=== PATIENT | female | born 1995 | race Caucasian/White ===

== ENCOUNTER 2022-04-09 14:55 | Day surgery (SDC) | payer OTHER, SELFPAY ==
[2022-04-09] VITALS (17 sets, daily range): BP systolic 81–119; BP diastolic 52–97; PULSE 59–91; RESP 14–20; TEMP 36.3–37.3; O2SAT 97–100; BMI 24.3
--- NOTE | 2022-04-09 12:15 | CRLHL7_ITS ---
For Patients: As a result of the Cures Act, medical imaging exams and procedure reports are released immediately into your electronic medical record. You may view this report before your referring provider. If you have questions, please contact your health care provider. INDICATION: Dating and viability. LMP 01/26/2022. COMPARISON: None. TECHNIQUE: Real-time blue-scale imaging of the pelvis was performed. FINDINGS: Sonographic imaging demonstrates a single living intrauterine gestation. The embryo has a regular cardiac rate measuring 98 beats per minute. The embryo`s crown-rump length measurement of 0.3 cm corresponds to a gestational age of 5 weeks 6 days with a sonographic due date of 12/04/2022. There is a normal-appearing yolk sac. The placenta has not yet developed. No evidence of a perigestational hemorrhage. The cervix appears closed. The left ovary is normal in appearance measuring 3.8 x 1.5 x 2.2 cm. There is a large complex solid and cystic structure in the right adnexa extending posterior to the uterus measuring approximately 10.2 x 4.3 x 9.1 cm. Within this structure there is a 3.0 x 2.6 x 2.5 cm thick-walled complex cyst with peripheral vascularity which may represent a corpus luteum. Moderate amount of free fluid in the right adnexa. IMPRESSION: 1. Single living intrauterine gestation with crown rump length 0.3 cm which corresponds to a gestational age of 5 weeks 6 days with a sonographic due date of 12/04/2022. This is discordant with the clinical gestational age of 10 weeks 3 days. 2. Large complex solid and cystic structure in the right adnexa extending posterior to the uterus. This may represent an abnormal enlarged ovary or ovarian mass. There appears to be a corpus luteum within this structure. Ectopic consider less likely given presence of an intrauterine gestation. Consider further evaluation with MRI. 3. Moderate amount of free fluid in the right adnexa greater than expected for physiologic. Dictated by Florencia Brunson MD @ 04/09/2022 2:30:36 PM (Electronically Signed)
[2022-04-09] MEDS: LACTATED RINGERS 1000 ML 1,000 ML 125 ML IV ×2 (15:15→23:02)
[2022-04-09 16:21] LABS: SARS PCR* Negative SARS-CoV-2 (Negative)
[2022-04-09] MEDS: BUPIVACAINE 0.25% 30 ML 8 ML INJECTION (16:22)
[2022-04-09 16:58] LABS: Eosinophils Absolute Auto 0.01 K/uL (0.00-0.50); Eosinophils Percent Auto 0.1 % (0.0-7.0); Hematocrit 35.1 % (33.0-51.0); Hemoglobin* 11.6 gm/dL (12.0-16.0); Immature Granulocytes Abs Auto 0.01 K/uL (0.00-0.30); Immature Granulocytes Pct Auto 0.1 %; Lymphocytes Absolute Auto 2.09 K/uL (0.90-2.90); Lymphocytes Percent Auto 29.8 % (20-44); Mean Corpuscular HGB Conc 33 gm/dL (32-36); Mean Corpuscular Hemoglobin 28 pg (26-34); Mean Corpuscular Volume 83 fL (80-100); Monocytes Percent Auto 6.4 % (0.0-11.0); Neutrophils Absolute Auto 4.46 K/uL (1.7-7.0); Neutrophils Percent Auto 63.6 % (42.0-72.0); Platelet Count* 258 K/uL (140-440); RDW Coefficient of Variation % 12.4 % (11.5-15.5); Red Blood Count 4.22 m/uL (4.00-5.20); White Blood Count* 7.02 K/uL (4.50-11.00)
[2022-04-09] MEDS: LACTATED RINGERS 1000 ML 1,000 ML 100 ML IV (17:00)
[2022-04-09 17:16] LABS: INR 1.06 (0.91-1.10); Prothrombin Time 14.4 Seconds
[2022-04-09 17:17] LABS: Fibrinogen* 312 mg/dL (200-450)
--- NOTE | 2022-04-09 17:51 | PM.GSPRC ---
Operative Note Date of procedure: 04/09/22 Type of Procedure: Diagnostic laparoscopy Procedure Description: Patient was asleep and laparoscopic ports in place when I entered the operating room. An additional 5 mm port was placed in the left upper quadrant. There was a moderate amount of dark blood within the pelvis. This was gently irrigated and suctioned. No active bleeding was seen in the pelvis. The uterus , bilateral fallopian tubes and ovaries appeared normal. The left pericolic gutter was examined. There was some dark sanguinous fluid that was suctioned, no active bleeding was seen. Left colon appeared normal. The spleen was visualized and appeared intact with no active bleeding in the left upper quadrant. The liver was examined, there was a moderate amount of dark sanguinous fluid behind the liver and within the gallbladder fossa. This was irrigated and suctioned, with again no active bleeding identified. The right pericolic gutter was visualized. No active bleeding, colon appeared normal and appendix was normal. The omentum was gently lifted with no bleeding present underneath the omentum. Stomach appeared normal. The entirety of the small bowel was run and the mesentery visualized, with no injury or bleeding seen. The entry sites of the ports were examined, no anterior abdominal wall bleeding or hematoma seen. The abdominal insufflation was partially deflated and we observed the intra-abdominal contents under this reduced pressure for an extended period of time (greater than 20 minutes). During this time period and throughout the entire operation there was no welling of blood or active bleeding identified. At this time Dr. Gisela Edwards took over to close the ports and complete the case. Please see her note for full details. Findings: Intra-abdominal hemoperitoneum, no active bleeding seen and no source identified. Anesthesia: GETA Surgeon: Jenn Mcclelland MD Estimated blood loss (mL): 0 Condition: stable Disposition: PACU
--- NOTE | 2022-04-09 18:03 | PM.GSCN ---
History of Present Illness Consult details Date Seen: 04/09/22 Consult date: 04/09/22 Narrative: History is from chart review with patient currently in the operating room in unable to provide. Patient is an otherwise healthy 26-year-old female who presented for her 1st OB visit. She recently discovered she was , currently estimated to be 6 weeks. She does have a 3-year-old daughter. Current symptoms described during include nausea and sharp right-sided abdominal pain. She does cramp on this side with periods, but also has started to feel pelvic pain and pressure that started this morning. On chart review she scribed the pain is severe, focus within the right lower quadrant and worse with movement. 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 Review of Systems Status of ROS: Reports: unobtainable due to medical condition [facility] Medical History Migraine aura without headache Surgical History [place] teeth extracted Family History Father Alcohol dependence High blood pressure High cholesterol Skin cancer Pancreatitis Paternal Grandmother Alcohol dependence High blood pressure High cholesterol Stroke Paternal Grandfather Diabetes High blood pressure High cholesterol Maternal Grandfather Prostate cancer Other Myocardial infarction Meds Home Medications and Allergies Home Medications Medication Instructions Recorded Confirmed Type No Known Home Medications 04/09/22 04/09/22 History Allergies Allergy/AdvReac Type Severity Reaction Status Date / Time No Known Drug Allergies Allergy Verified 04/09/22 15:53 Exam Narrative: Exam Narrative: General: Patient intubated on the operating room. Respiratory: Patient intubated and being ventilated, equal breath rise. Adequate oxygenation CV: Regular rhythm rate, well perfused. Hemodynamically stable. Abdomen: Deferred at this time. Const: Vital Signs, click to edit/add: Vital Signs - 24 hr 04/09/22 15:19 Pulse Rate 81 Respiratory Rate 20 Blood Pressure 118/86 Pulse Oximetry 98 Oxygen Delivery Me thod Room Air Results Labs Labs: Abnormal lab results 04/09/22 04/09/22 Range/Units 16:54 16:54 Hgb 11.6 L (12.0-16.0) gm/dL Crossmatch ([facility]G) See Detail All other labs normal. Imaging US - pelvic: report reviewed and image reviewed Assessment and Plan Assessment and plan (1) Hemoperitoneum (nontraumatic): Status: Acute Plan Patient is an otherwise healthy 26-year-old female who presented for her 1st OB visit with complaints of right lower quadrant abdominal pain. Workup demonstrated via transvaginal ultrasound a complex mass around the right adnexa. Starting hemoglobin normal at 14.0, platelet 295. Evidence in the operating room of hemoperitoneum, nontraumatic, of unknown origin. A diagnostic laparoscopy was performed and negative for any source, with no active bleeding seen. Intraoperative hemoglobin did demonstrate a drop of 11.6. However patient did receive 1300 mL for fluids intraop, so this could be a component of dilution. A type and cross was performed, but no blood given. Discussed with primary care provider, Dr. Gisela Edwards, who was present in the operating room. Will speak with patient about further imaging with a CT scan. Would also plan for observation overnight and trending hemoglobins. Will continue to follow closely. Please call with any acute clinical changes, questions or concerns.
--- NOTE | 2022-04-09 18:10 | PM.PROC ---
Procedure Note Time Seen by Provider: 18:11 Date Seen: 04/09/22 Date of procedure: 04/09/22 Will [facility] bill your pro fee for this procedure?: Yes Procedure: Preoperative diagnosis: 26-year-old 2 para 1 at side weeks 6 days gestation by vaginal ultrasound on 04/09/2022. Suspected heterotopic with moderate to large amount of blood and blood clot in the pelvis near the right adnexa (ruptured ectopic ) Postoperative diagnosis: Hemoperitoneum, source not identified. Procedure: Diagnostic laparoscopy Anesthesia: General endotracheal, local Surgeon: Kamila Kearns MD assistant housekeeping manager: Debi Evans MD Cytology Technologist surgeon: Jenn Mcclelland MD IV Fluid: 1300 mL Estimated blood loss: Intra-abdominal blood plus estimated blood loss from the procedure: 400 mL Urine output: 25 mL clear urine at the end of the procedure. Specimen: None Findings: Exam under anesthesia approximately 6-7 week size uterus. No adnexal mass or fullness was palpable. On laparoscopy: On entrance into the abdomen there was 300-400 mL of very dark, maroon colored, old blood and blood clot. There was approximately 200 mL of blood and clot in the posterior cul-de-sac/pelvis. The ovaries tubes and uterus appeared normal. Normal appendix. Normal liver and gallbladder. Because there was no gynecologic/obstetric source of bleeding doctor: Was consulted. Procedure: Patient was taken to the operating room where general anesthetic was found be adequate. A Shannon catheter was placed. She was placed in the dorsal supine position and prepped and draped in a normal sterile manner. All incisions were injected with 0.5% Marcaine without epinephrine prior to incising the skin. A vertical, 5 mm infra umbilical incision was made. A 5 mm trocar was placed under direct visualization. The abdomen was insufflated with CO2 gas to a pressure of 15mmHG. Bilateral lower quadrant ports were placed. Right lower quadrant: 5 mm and left lower quadrant: 11 mm. All trocars were placed under direct visualization with laparoscopy. The pelvis was irrigated and the blood and clot in the pelvis suctioned. The tubes and ovaries were closely inspected and there was no evidence of ruptured ovarian cyst or ruptured fallopian tube. No identified gynecologic source of bleeding. The liver, gallbladder and appendix were inspected and all normal. Doctor cMclelland was consulted. The CO2 gas was decreased to a pressure of 8mmHg and the abdomen inspected when Dr. Mcclelland arrived. We waited approximately 25 minutes and when the laparoscope was reintroduced into the abdomen there was no evidence of increased accumulation of blood and no welling of blood in the pelvis, pericolic gutters or near the liver or spleen. Please see Dr. Mcclelland's procedure note for details of her portion of the procedure. The fascia of the left lower quadrant, 11 mm port was reapproximated using the Anand-Thomasen fascial closure device. All trocars were removed under direct visualization. The CO2 gas was allowed to escape the left upper quadrant port prior to its removal. All skin incisions were reapproximated using 4-0 Monocryl in running subcuticular manner. Exofin skin adhesive was then applied. Surgeon: Kamila Kearns MD
--- NOTE | 2022-04-09 18:21 | W.ANESCHARGE ---
Anesthesia Charges Start Date/Time Anesthesia Start Date: 04/09/22 Anesthesia Start Time: 15:53 Stop Date/Time Anesthesia Stop Date: 04/09/22 Anesthesia Stop Time: 18:19 Summary Emergency: Yes
[2022-04-09 23:01] LABS: Hemoglobin* 12.8 gm/dL (12.0-16.0)
[2022-04-10] VITALS: BP 93/63; PULSE 89; RESP 16; TEMP 36.8; O2SAT 100
[2022-04-10 01:00] VITALS: BP 98/68; PULSE 86; RESP 16; TEMP 36.8; O2SAT 97
[2022-04-10 03:00] VITALS: BP 116/74; PULSE 71; RESP 16; TEMP 37.3; O2SAT 98
--- NOTE | 2022-04-10 05:05 | PC.NURSE ---
[id number]: Patient pleasant and cooperative. Rates pain 3-4/10. Declines pain medications. Active ice to op site. 4 lap sites glued and CHAPARRO. SBA. NPO. Some BP soft but denies dizziness/lightheadedness. HR 70-80's. Voiding. BS hypoactive.
[2022-04-10 05:53] LABS: Hemoglobin* 12.1 gm/dL (12.0-16.0)
[2022-04-10 07:30] VITALS: PULSE 88
[2022-04-10 07:47] VITALS: BP 113/83; PULSE 95; RESP 18; TEMP 37.6; O2SAT 96
--- NOTE | 2022-04-10 11:27 | P.GYNPN_ITS ---
[employer] - A/P Assessment and plan (1) Hemoperitoneum (nontraumatic): Status: Acute Plan - F/u with OB provided in 1 week for repeat hgb and TVUS to confirm viability Postoperative Procedures: Procedures Operation Date: 04/09/22 16:15 <No data on this case meets the specified criteria> Operation Date: 04/09/22 16:15 Actual Procedure Side Surgeon p Diagnostic Laparoscopy Not Applicable Kamila Kearns MD Time Spent With Patient Time: Total time spent is greater than 50% in coordination of care (as documented) at patient's floor/unit and/or counseling patient: Time with patient: less than 15 minutes [employer]- PN:Subj Post-Op Subjective Time Seen by Provider: 11:00 Date Seen: 04/10/22 Post Operative Details: Post-operative day number 1: status post diagnostic laparoscopy for hemoperitoneum, unidentified source. She's doing well overall with no postop related complaints. She's ambulated, urinated without hdz, pass flatus, and pain is well controlled. She is upset that she has to wear a mask in the hospital as she felt she was discriminated against. She also would like a home . I informed her that none of our OB providers ( or [facility]) do home births. I do recommend doing at least a follow up and full initial OB visit to make sure everything is ok from this surgery prior to pursuing home care. [employer]-PN: Obj Exam Physical Exam: Vital signs: Temp Pulse Resp BP Pulse Ox O2 Del Method 99.6 F 95 18 113/83 96 04/10/22 07:47 04/10/22 07:47 04/10/22 07:47 04/10/22 07:47 04/10/22 07:47 04/10/22 07:47 Narrative: Exam Narrative: General:? Alert and oriented, no acute distress Respiratory: unlabored breathing. Abdomen:? Appropriately tender over incision sites.? Incisions are clean/dry/intact.? Abdomen is soft and nondistended [employer] - PN: Obj Data Labs Labs: Laboratory Results - last 24 hr 04/09/22 04/09/22 04/09/22 15:05 16:54 16:54 WBC 7.02 RBC 4.22 Hgb 11.6 L Hct 35.1 MCV 83 MCH 28 MCHC 33 RDW Coeff of Armand 12.4 Plt Count 258 Neut % (Auto) 63.6 Lymph % (Auto) 29.8 Parmer % (Auto) 6.4 Eos % (Auto) 0.1 Baso % (Auto) 0.0 Neut # (Auto) 4.46 Lymph # (Auto) 2.09 Parmer # (Auto) 0.40 Eos # (Auto) 0.01 Baso # (Auto) 0.00 Abs Immat Gran (auto) 0.01 Imm/Tot Granulo (auto) 0.1 INR Fibrinogen SARS-CoV-2 (PCR) Negative SARS-CoV-2 Blood Type B Positive Antibody Screen NEGATIVE Crossmatch ([facility]) See Detail 04/09/22 04/09/22 04/10/22 16:54 22:50 05:20 WBC RBC Hgb 12.8 12.1 Hct MCV MCH MCHC RDW Coeff of Armand Plt Count Neut % (Auto) Lymph % (Auto) Parmer % (Auto) Eos % (Auto) Baso % (Auto) Neut # (Auto) Lymph # (Auto) Parmer # (Auto) Eos # (Auto) Baso # (Auto) Abs Immat Gran (auto) Imm/Tot Granulo (auto) INR 1.06 Fibrinogen 312 SARS-CoV-2 (PCR) Blood Type Antibody Screen Crossmatch ([facility])
--- NOTE | 2022-04-10 11:29 | PM.GSPN ---
Subjective Subjective Date Seen: 04/10/22 Interval history: Patient is doing well this morning. Her main complaint is pain in the left lower quadrant at 1 of the port sites. She has been refusing any pain medicine and been placing ice to the area. She is hungry, denies any nausea or vomiting. She does not want to eat to the breakfast your the hospital. She did talk with me about how she feels like her bleeding is from exposure to people who have had the COVID vaccine. She also discussed her desire to take turmeric for pain control. Exam Narrative: Exam Narrative: General: Alert and oriented, no acute distress Respiratory: Equal breath rise bilaterally, maintained on room air CV: Regular rhythm rate Abdomen: Appropriately tender over incision sites. Incisions are clean/dry/intact. Abdomen is soft and nondistended. Const: Vital Signs, click to edit/add: Vital Signs - 24 hr 04/09/22 15:19 04/09/22 18:14 04/09/22 18:25 Temperature 97.4 F L Pulse Rate 81 59 L 65 Pulse Rate [Pulse Oximeter] Respiratory Rate 20 14 14 Blood Pressure 118/86 93/66 101/73 Blood Pressure [Ri ght Arm] Pulse Oximetry 98 100 100 Oxygen Delivery Me thod Room Air Room Air Room Air 04/09/22 18:30 04/09/22 18:20 04/09/22 18:35 Temperature Pulse Rate 61 64 62 Pulse Rate [Pulse Oximeter] Respiratory Rate 14 14 14 Blood Pressure 108/79 99/74 107/80 Blood Pressure [Ri ght Arm] Pulse Oximetry 100 100 100 Oxygen Delivery Me thod Room Air Room Air Room Air 04/09/22 18:40 04/09/22 18:47 04/09/22 19:00 Temperature 98.6 F 99.2 F Pulse Rate 64 62 76 Pulse Rate [Pulse Oximeter] Respiratory Rate 14 14 16 Blood Pressure 108/77 109/70 Blood Pressure [Ri ght Arm] 119/97 H Pulse Oximetry 100 100 Oxygen Delivery Me thod Room Air Room Air Room Air 04/09/22 23:00 04/09/22 19:00 04/09/22 20:30 Temperature 99.2 F 98.4 F Pulse Rate 76 Pulse Rate [Pulse Oximeter] 77 83 Respiratory Rate 16 16 Blood Pressure Blood Pressure [Ri ght Arm] 119/97 H 81/52 L Pulse Oximetry 97 97 Oxygen Delivery Me thod Room Air Room Air 04/09/22 19:15 04/09/22 19:30 04/09/22 19:45 Temperature 99.2 F 99.2 F 98.8 F Pulse Rate Pulse Rate [Pulse Oximeter] 76 82 76 Respiratory Rate 16 18 18 Blood Pressure Blood Pressure [Ri ght Arm] 103/72 100/74 97/65 Pulse Oximetry 99 100 97 Oxygen Delivery Me thod Room Air Room Air Room Air 04/09/22 20:00 04/09/22 21:00 04/09/22 22:00 Temperature 98.8 F 98.4 F 98.4 F Pulse Rate Pulse Rate [Pulse Oximeter] 81 83 91 Respiratory Rate 16 18 18 Blood Pressure Blood Pressure [Ri ght Arm] 89/60 L 87/57 L 105/79 Pulse Oximetry 97 99 99 Oxygen Delivery Me thod Room Air Room Air Room Air 04/09/22 23:00 04/10/22 00:00 04/10/22 01:00 Temperature 98.3 F 98.3 F 98.3 F Pulse Rate Pulse Rate [Pulse Oximeter] 73 89 86 Respiratory Rate 16 16 16 Blood Pressure Blood Pressure [Ri ght Arm] 105/94 H 93/63 98/68 Pulse Oximetry [address] thod Room Air Room Air Room Air 04/10/22 03:00 04/10/22 07:47 04/10/22 07:30 Temperature 99.1 F 99.6 F Pulse Rate 88 Pulse Rate [Pulse Oximeter] 71 95 Respiratory Rate 16 18 Blood Pressure Blood Pressure [Ri ght Arm] 116/74 113/83 Pulse Oximetry 98 96 Oxygen Delivery Me thod Room Air Room Air Labs/Imaging Labs Labs: Q6h hemoglobins have been stable overnight (12.8--12.1--12.3) Imaging Imaging: No new imaging Progress Note: A&P Assessment and plan (1) Hemoperitoneum (nontraumatic): Status: Acute Assessment and Plan: Patient is postop day 1 diagnostic laparoscopy for hemoperitoneum. No source of bleeding or active bleeding identified intraoperatively. She has been monitored overnight with vital signs and hemoglobin stable. No concern this morning for any ongoing bleeding. I did review with the patient recommendations for no strenuous activity for the next 2 weeks. I also discussed with her that I would avoid turmeric supplementation, since this can increase your risk of bleeding. She will follow up with OB next week for a hemoglobin check and transvaginal ultrasound.
[2022-04-10 11:39] LABS: Hemoglobin* 12.3 gm/dL (12.0-16.0)
[2022-04-10 11:59] VITALS: BP 109/70; PULSE 88; RESP 18; TEMP 37.6
--- NOTE | 2022-04-10 15:05 | SUR.PREOP ---
Charting verified by Neo RN, verified by this RN with CM.
[2022-04-14 12:34] LABS: Slide Review Reflex No
== END 2022-04-10 12:19 | disposition home or self-care (01) ==
LOC: SS 14:57 → OB 15:04 → MEDSURG 18:58
PROVIDERS: PCP Obstetrics & Gynecology; Visit Provider Surgery
PROC: (CPT 49320; principal; 2022-04-09 16:00)
DX: O00.81 Other ectopic pregnancy with intrauterine pregnancy (principal); K66.1 Hemoperitoneum; Z3A.01 Less than 8 weeks gestation of pregnancy
CPT/HCPCS: 49329; 36415; 76801; 76817; 790; 84702; 85018; 85025; 85384; 85610; 86592; 86703; 86762; 86787; 86803; 86850; 86900; 86901; 86922; 87340; 87635; 99140; J0330; J1100; J1200; J1885; J2250; J2405; J2704; J2710; J3010; J3490; J7120

== ENCOUNTER 2022-12-05 18:01 | Outpatient (CLI) | payer OTHER, SELFPAY ==
--- NOTE | 2022-12-05 19:11 | ED.NURSE ---
Pt triaged by YASIR Valencia with Dr. Eid present. Transferring to OB. OB Charge nurse notified.
[2022-12-05 19:15] VITALS: BP 105/73; PULSE 54; RESP 16; TEMP 37.1; O2SAT 100
[2022-12-05] MEDS: LIDOCAINE 1 % PF 30 ML INJECTION (19:25)
[2022-12-05 19:38] VITALS: BP 136/94; PULSE 99; RESP 18; TEMP 36.8; O2SAT 97
[2022-12-05 19:51] VITALS: BP 127/84; PULSE 88; RESP 18; TEMP 37.1; O2SAT 99
--- NOTE | 2022-12-05 20:01 | P.OBO_ITS ---
OB Outpatient HPI History of Present Illness Date Seen: 12/05/22 History of Present Illness: 27 year old presented to the ED with concern about possible 3rd degree perineal laceration. She was triaged to the Center for evaluation and treatment as an outpatient. The patient is status post a normal spontaneous vaginal delivery today at 1:55 p.m. of a viable female at home. The was attended by a steel layout worker, who accompanies her here today. At approximately 3:30 p.m., the steel layout worker examined her vaginal area and observed a perineal laceration that she feared might be a third degree, as well as bilateral periurethral lacerations. Total estimated blood loss for the delivery was about 250 mL. At the time of arrival, the patient complained of cramping uterine discomfort and perineal pain with movement. She was not actively bleeding. The patient states that she takes no medications, preferring to use supplements when needed. Meds Home Medications and Allergies Home Medications Medication Instructions Recorded Confirmed Type No Known Home Medications 04/09/22 12/05/22 History Allergies Allergy/AdvReac Type Severity Reaction Status Date / Time No Known Drug Allergies Allergy Verified 12/05/22 19:08 [facility] Medical History (Updated 12/05/22 @ 20:13 by Shana Eid MD) Migraine aura without headache ?G43.109 - Migraine with aura, not intractable, without status migrainosus (ICD-10) Surgical History (Updated 12/05/22 @ 20:09 by Shana Eid MD) S/P laparoscopy (03/2022) ?Z98.890 - Other specified postprocedural states (ICD-10) [place] teeth extracted ?K08.409 - Partial loss of teeth, unspecified cause, unspecified class (ICD- 10) Family History Father Alcohol dependence High blood pressure High cholesterol Skin cancer Pancreatitis Paternal Grandmother Alcohol dependence High blood pressure High cholesterol Stroke Paternal Grandfather Diabetes High blood pressure High cholesterol Maternal Grandfather Prostate cancer Other Myocardial infarction History History 2 Elective abortions Para 1 Spontaneous abortions Hx # Term Pregnancies 1 Ectopic pregnancies Hx # Pregnancies Multiple births Number of Living Children 1 Past Pregnancies Del. Date GA/Weeks Outcome Route wt Inf Gender Labor Lgth Anesthesia Location Provider Compli 03/27/19 41 live - full term 7 lb 12 oz Female epidur al 12/05/22 40 live - full term Female Delivery Date: 12/05/22 Last Updated by: Shana Eid MD Home , second degree laceration requiring repair in hospital OB - H&P: Exam Physical Exam Vital signs: Temp Pulse Resp BP Pulse Ox O2 Del Method 98.3 F 99 18 136/94 H 97 Room Air 12/05/22 19:38 12/05/22 19:38 12/05/22 19:38 12/05/22 19:38 12/05/22 19:38 12/05/22 19:15 Constitutional Constitutional: no acute distress and cooperative Routine Exam External: Present lacerations (2nd degree perineal, bilateral periurethral R>L) Detailed Labor and Delivery Exam Consistency: firm Routine Extremities Exam Extremities: Present normal inspection Routine Neurological Exam Present alert and oriented X3 Routine Psychiatric Exam Present normal affect and anxious Assessment and Plan Assessment and plan (1) Status post vaginal delivery: Status: Acute (2) Perineal laceration during delivery, condition: Status: Acute Plan The patient was admitted to the Center as a clinic outpatient for evaluation and perineal and periurethral laceration repair. See dictated procedure note. The patient was discharged to home following repair with instructions on post delivery navin care. Time Spent with Patient Time with Patient: Greater than 35 minutes
--- NOTE | 2022-12-05 20:16 | W.PM.GYNPROC ---
Procedure Note Date of procedure: 12/05/22 Pre-op diagnosis: 1. Perineal and bilateral periurethral lacerations status post home Post-op diagnosis: same Procedure: Repair of second-degree perineal laceration and 1st-degree right periurethral laceration Anesthesia: local Complications: None Surgeon: Stanton Estimated blood loss (mL): 5 Condition: stable Disposition: same day Findings: Second-degree midline perineal laceration along the line of previous episiotomy scar. Bilateral periurethral lacerations, superficial on the left, and 1st degree on the right. Procedure Description: After obtaining verbal consent, the patient was placed in the dorsal lithotomy position. An examination was performed with the findings noted above. 1% lidocaine was infiltrated subcutaneously into the tissue surrounding the perineal laceration and the right periurethral laceration. A total of 15 mL was used. The perineal laceration was repaired in the usual, layered, sterile fashion using 3-0 chromic. The periurethral laceration was reapproximated in a subcuticular fashion also with 3-0 chromic. The patient tolerated the procedure well. Sponge and needle counts reported as correct x2. The patient was discharged to home in stable condition.
== END 2022-12-05 20:00 | disposition home or self-care (01) ==
LOC: ED 19:23 → OB OUT 19:24 → OB 19:25
PROVIDERS: Emergency Provider Emergency Medicine; Visit Provider Obstetrics & Gynecology
DX: O70.9 Perineal laceration during delivery, unspecified (principal)
CPT/HCPCS: 99213; J2001

== ENCOUNTER 2024-05-22 20:28 | Outpatient (CLI) | payer MEDICAID, SELFPAY | END 2024-05-22 20:29 | disposition home or self-care (01) | LOC: AMB 05-24 08:25 | PROVIDERS: Visit Provider Family Medicine | DX: O70.9 Perineal laceration during delivery, unspecified (principal) | CPT/HCPCS: A0425; A0429 ==

== ENCOUNTER 2024-11-19 08:33 | Emergency (ER) | payer MEDICAID, SELFPAY ==
--- OUTSIDE RECORDS SUMMARY | 2024-11-19 08:35 | XMS_ITS | Encounter Summary ---
Author Organization [facility] Address [address] [place] [address] Care Team Providers Care Parts Manager Name Role Phone Eusebia Trimble MD Primary Care Provider Encounter Details Date Type Department Care Team (Latest Contact Info) Description 11/22/1994 Orders Only Lonnie Bolden [address] [address] Social History Tobacco Use Types Packs/Day Years Used Date Smoking Tobacco: Never Assessed Comments Unknown Sex and Gender Information Value Date Recorded Sex Assigned at Not on file Legal Sex Female 4:53 AM CDT Gender Identity Not on file Sexual Orientation Not on file documented as of this encounter Plan of Treatment Not on file documented as of this encounter Visit Diagnoses Not on filedocumented in this encounter Care Teams Parts Manager Relationship Specialty Start [place] [address] [place] [address] PCP - General 12/07/05 documented as of this encounter
--- OUTSIDE RECORDS SUMMARY | 2024-11-19 08:35 | XMS_ITS | Clinical Summary ---
Author Organization [facility] Address [address] [place] [address]. [place] [address] Care Team Providers Care Loom Mechanic Name Role Phone Unavailable Primary Care Provider Unavailabl e Allergies Active Allergy Reactions Criticality Noted Date Comments Cats 07/23/2014 Medications busPIRone (BUSPAR) 15 MG tabletIndicatio ns:Anxiety Take 1 tablet (15 mg) by mouth 2 times daily 60 tablet 5 7 Active Additional Information Patient not taking.Reported on 09/26/2017 Active Problems Problem Noted Date Diagnosed Date Adjustment disorder with depressed mood 11/30/19 13 Anxiety 11/29/2012 Migraine headache 09/19/2010 Overview (02/22/2012): (Problem list name updated by automated process. Provider to review and confirm.) Comments Yes Resolved Problems Problem Noted Date Diagnosed Date Resolved Date Dysthymia 11/17/2010 11/29/2012 Immunizations Immunization Administration Dates Next Due DTAP (<7y) 10/02/1998, 5,02/05/1994,1993, HIB (PRP-T) 02/03/1995,02/05/1994,1993 ,1993 HepB 05/07/1999,11/06/1998,10/02/1998 MMR (MMRII) 11/06/1998,02/03/1995 Poliovirus, inactivated (IPV) 10/02/1998, 994,1993,1993 TDAP (Adacel,Boostrix) 12/22/2005 TDAP Vaccine (Boostrix) 12/22/2005 Family History Medical History Relation Comments Depression Brother Hypertension Father Cancer Maternal Grandfather prostate Heart Disease Maternal Grandmother heart attac ks, pacemaker Diabetes Paternal Grandfather Hypertension Paternal Grandmother Relation Status Comments Brother Father Maternal Grandfather Maternal Grandmother Paternal Grandfather Paternal Grandmother Social History Tobacco Use Types Packs/Day Years Used Date Smoking Tobacco: Never Smokeless Tobacco: Never Alcohol Use Standard Drinks/Week Comments No 0 (1 standard drink = 0.6 oz pur e alcohol) Adolescent Education Answer Date Record ed Getting School Help Needed Not on file 02/27 Comments Yes Sex and Gender Information Value Date Recorded Sex Assigned at Not on file Legal Sex Female 3:37 AM AIR BRAKE ADJUSTER Gender Identity Not on file Sexual Orientation Not on file Last Filed Vital Signs Vital Sign Reading Time Taken Comments Blood Pressure 131/71 05/22/2024 9:57 PM AIR BRAKE ADJUSTER Pulse 73 09/26/2017 7:45 PM CDT Temperature 36.6 C (97.8 F) 05/22/2024 9:57 PM AIR BRAKE ADJUSTER Respiratory Rate 18 05/22/2024 9:57 PM AIR BRAKE ADJUSTER Oxygen Saturation 100% 09/26/2017 7:45 PM CDT Inhaled Oxygen Concentration - - Weight 58 kg (127 lb 12.8 oz) 09/26/2017 7:45 PM CDT Height 157.5 cm (5' 2) 10/13/2015 2:04 PM CDT Body Mass Index 23.37 10/13/2015 2:04 PM CDT Plan of Treatment Health Maintenance Due Date Last Done Comments ADVANCE CARE PLANNING 1993 ANNUAL REVIEW OF HM ORDERS 1993 YEARLY PREVENTIVE VISIT 12/22/2006 12/23/19 06, 10/05/2000, 09/16/1995, Additional history exists HEPATITIS C SCREENING 08/17/2011 PAP 02/07/2021 02/07/2018, 07/22/2016 COVID-19 VACCINE ( season) 2024 PHQ-2 (once per calendar year) 2024 11/12/2016, 10/15/2016 INFLUENZA VACCINE (Season Ended) 2025 04/03/2019, 08/01/2018 DTAP/TDAP/TD VACCINE (9 - Td or Tdap) 06/27/2028 06/27/2018, 12/22/2005, 12/22/2005, Additional history exists ZOSTER VACCINE (1 of 2) 08/17/2043 HEPATITIS B VACCINE Completed 05/07/1999, 05/07/1999, 11/06/1998, Additional history exists MIGRAINE ACTION PLAN Completed 07/06/2012, 09/20/19 11 HIV SCREENING Completed 12/31/2017 HPV VACCINE Aged Out No longer eligi ble based on patient's age to complete this topic MENINGITIS VACCINE Aged Out No longer eligible based on patient's age to complete this topic PNEUMOCOCCAL VACCINE: PEDIATRICS (0 to 5 YEARS) AND AT-RISK PATIENTS (6 to 49 YEARS) Aged Out No longer eligible based on patient's age to complete this topic Procedures Procedure Name Priority Date/Time Associated Diagnosis Comments PAP SMEAR - HIM PATIENT REPORTED Routine 07/22/2016 from Last 3 Months or Most Recently Relevant to Health Maintenance Results * PAP Smear - HIM Patient Reported (07/22/2016) PAP Smear - HIM Patient Reported Negative EXTERNAL LAB 07/22/2016 Narrative EXTERNAL LAB - 07/22/2016 Pt states has had normal pap done at [facility] either july or August 2016.Betsy Garcia MA us Patient Reported LABORATORY Final Result EXTERNAL LAB External Lab from Last 3 Months or Most Recently Relevant to Health Maintenance Insurance [facility] [employer]
--- OUTSIDE RECORDS SUMMARY | 2024-11-19 08:35 | XMS_ITS | Encounter Summary ---
Author Organization [facility] Address [address] [place] [address] Care Team Providers Care Dba Developer Name Role Phone Eusebia Trimble MD Primary Care Provider [phone] Encounter Details Date Type Department Care Team (Latest Contact Info) Description 05/27/1994 [place] [address] [place], [place] [id number] Social History Tobacco Use Types Packs/Day Years [...] on filedocumented in this encounter Care Teams Dba Developer Relationship Specialty Start [place] [address] [place], [place] [phone] PCP - General 12/07/05 documented as of this encounter
--- OUTSIDE RECORDS SUMMARY | 2024-11-19 08:35 | XMS_ITS | Encounter Summary ---
Author Organization [facility] Address [address] [place] [address] Care Team Providers Care Bus Escort Name Role Phone Eusebia Trimble MD Primary Care Provider Encounter Details Date Type Department Care Team (Latest Contact Info) Description 08/21/1998 Orders Only Syd Borges MD [facility] [address] [place], [place] [id number] Social History Tobacco Use Types Packs/Day Years [...] on filedocumented in this encounter Care Teams Bus Escort Relationship Specialty Start [place] [address] [address], [place] [phone] PCP - General 12/07/05 documented as of this encounter
--- OUTSIDE RECORDS SUMMARY | 2024-11-19 08:35 | XMS_ITS | Encounter Summary ---
Author Organization [facility] Address [address] [place] [address] Care Team Providers Care Puttier Name Role Phone Eusebia Trimble MD Primary Care Provider Encounter Details Date Type Department Care Team (Latest Contact Info) Description 08/27/1997 Orders Only Syd Borges MD [facility] [address] [place], [place] [phone] Social History Tobacco Use Types Packs/Day Years [...] on filedocumented in this encounter Care Teams Puttier Relationship Specialty Start [place] [address] [place], [place] [phone] PCP - General 12/07/05 documented as of this encounter
--- OUTSIDE RECORDS SUMMARY | 2024-11-19 08:35 | XMS_ITS | Encounter Summary ---
Author Organization [facility]ending sale to [facility] Address [address] [place] [address] Care Team Providers Care Technology Support Analyst Name Role Phone Eusebia Trimble MD Primary Care Provider [phone] Encounter Details Date Type Department Care Team (Latest Contact Info) Description 08/24/1994 Orders Only Juan Pablo Stein MD [address] [place] [address] Social History Tobacco Use Types Packs/Day Years [...] on filedocumented in this encounter Care Teams Technology Support Analyst Relationship Specialty Start [place] [address] [place] [address] PCP - General 12/07/05 documented as of this encounter
--- OUTSIDE RECORDS SUMMARY | 2024-11-19 08:35 | XMS_ITS | Clinical Summary ---
Author Organization [facility] Address [address] [place] [address] Care Team Providers Care Cotton Farmer Name Role Phone Eusebia Trimble MD Primary Care Provider [phone] Source Comments You are receiving this document as you are listed as the primary care provider,follow-up provider, or the patient has been referred to you for consultation.This is in compliance with the Medicare and[facility] Hospital[facility] EHR Incentive Program,which states Providers who transition their patient to another setting of careor provider of care or refers their patient to another provider of care shouldprovide summary care record for each transition of care or referral. [facility] [place] Allergies No known active allergies Medications MV-Min-Fe Fum-FA-DHA ( 1 OR) Acti ve Active Problems Problem Noted Date Diagnosed Date Adjustment disorder with depressed mood 11/30/19 13 Anxiety 11/29/2012 Migraine headache 09/19/2010 Overview (06/18/2017): Overview: (Problem list name updated by automated process. Provider to review and confirm.) Immunizations Immunization Administration Dates Next Due DTP-Hib (Tetramune) 02/03/1995,02/05/1994,1993,1993 DTaP 10/02/1998 HepB Ped/Adol (0-18 yrs) 05/07/1999,11/06/1998,0 10/02/1998 MMR 11/06/1998,02/03/1995 OPV, Trivalent (Orimune or tOPV) 10/02/1998,01/22,1993,1993 Tdap 12/22/2005 Varicella 10/30/1998(Deferred: Immune by [place] law) Social History Tobacco Use Types Packs/Day Years Used Date Smoking Tobacco: Never Smokeless Tobacco: Never Alcohol Use Standard Drinks/Week Comments Yes 0 (1 standard drink = 0.6 oz pur e alcohol) occasional Comments No Sex and Gender Information Value Date Recorded Sex Assigned at Not on file Legal Sex Female 4:53 AM CDT Gender Identity Not on file Sexual Orientation Not on file Last Filed Vital Signs Vital Sign Reading Time Taken Comments Blood Pressure 124/76 06/18/2017 8:58 AM ICER MACHINE OPERATOR Pulse 76 06/18/2017 8:58 AM ICER MACHINE OPERATOR Temperature 36.3 C (97.3 F) 12/01/2006 9:00 AM CDT Respiratory Rate 12 12/01/2006 9:00 AM CDT Oxygen Saturation - - Inhaled Oxygen Concentration - - Weight 58.1 kg (128 lb) 06/18/2017 8:58 AM ICER MACHINE OPERATOR Height 157.5 cm (5' 2) 06/18/2017 8:58 AM ICER MACHINE OPERATOR Body Mass Index 23.41 06/18/2017 8:58 AM ICER MACHINE OPERATOR Plan of Treatment Health Maintenance Due Date Last Done Comments Cervical Cancer Screening Due 1993 Hep C Screening (Preventive Services) 1993 Adult Preventive Visit 08/17/2011 6, 10/05/2000, 10/02/1998, Additional history exists COVID-19 Vaccine ( season) 2024 Influenza Vaccine (Season Ended) 2025 04/03/2019, 08/01/2018 DTaP/Tdap/Td Vaccine (8 - Tdap) 06/27/2028 06/27/2018, 12/22/2005, 10/02/1998, Additional history exists Zoster/Shingles Vaccine (1 of 2) 08/17/2043 Hib Vaccine Completed 02/03/1995, 01/22, 02/05/1994, Additional history exists IPV (Polio) Vaccine Completed 10/02/1998, 02/05/1994, 1993, Additional history exists HepB Vaccine Completed 05/07/1999, 10/22, 10/02/1998 HIV Screening (Preventive Services) Completed 12/31/2017 HPV Vaccine Aged Out No longer eligi ble based on patient's age to complete this topic HepA Vaccine Aged Out No longer eligi ble based on patient's age to complete this topic MCV4 Vaccine Aged Out No longer eligi ble based on patient's age to complete this topic Meningococcal B Vaccine Aged Out No l onger eligible based on patient's age to complete this topic Pneumococcal Vaccine Aged Out No long er eligible based on patient's age to complete this topic Insurance [facility] Care Teams Cotton Farmer Relationship Specialty [place] [address] [place] [phone] PCP - General 12/07/05
--- OUTSIDE RECORDS SUMMARY | 2024-11-19 08:35 | XMS_ITS | Encounter Summary ---
Author Organization [facility] Address [address] [place] [address] Care Team Providers Care Mushroom Growing Supervisor Name Role Phone Eusebia Trimble MD Primary Care Provider [phone] Encounter Details Date Type Department Care Team (Latest Contact Info) Description 08/12/1994 Orders Only Linda Ann MD [address] [place] [address] Social History Tobacco Use Types Packs/Day Years [...] on filedocumented in this encounter Care Teams Mushroom Growing Supervisor Relationship Specialty Start [place] [address] [place], [place] [phone] PCP - General 12/07/05 documented as of this encounter
--- OUTSIDE RECORDS SUMMARY | 2024-11-19 08:35 | XMS_ITS | Encounter Summary ---
Author Organization [facility] Address [address] [place] [address] Care Team Providers Care Evaluation Advisor Name Role Phone Eusebia Trimble MD Primary Care Provider Encounter Details Date Type Department Care Team (Latest Contact Info) Description 09/22/1994 Orders Only Nae Hicks, DIRECTOR SOCIAL WELFARE, PACKING AND FINAL ASSEMBLY SUPERVISOR [address] [place] [address] Social History Tobacco Use Types Packs/Day Years [...] on filedocumented in this encounter Care Teams Evaluation Advisor Relationship Specialty Start [place] [address] [place] [address] PCP - General 12/07/05 documented as of this encounter
--- OUTSIDE RECORDS SUMMARY | 2024-11-19 08:35 | XMS_ITS | Encounter Summary ---
Author Organization [facility] Address [address] [place] [address] Care Team Providers Care Packaging Tech Name Role Phone Eusebia Trimble MD Primary Care Provider [phone] Encounter Details Date Type Department Care Team (Latest Contact Info) Description 07/30/1994 Orders Only Linda Ann MD [address] [place] [address] Social History Tobacco Use Types Packs/Day Years [...] on filedocumented in this encounter Care Teams Packaging Tech Relationship Specialty Start [place] [address] [place], [place] [phone] PCP - General 12/07/05 documented as of this encounter
--- OUTSIDE RECORDS SUMMARY | 2024-11-19 08:35 | XMS_ITS | Encounter Summary ---
Author Organization [facility] Address [address] [place] [address] Care Team Providers Care Order Analyst Name Role Phone Eusebia Trimble MD Primary Care Provider Encounter Details Date Type Department Care Team (Latest Contact Info) Description 11/23/1998 Orders Only Mona Cortes Social History Tobacco Use Types Packs/Day Years [...] on filedocumented in this encounter Care Teams Order Analyst Relationship Specialty Start [place] [address] [place] [address] PCP - General 12/07/05 documented as of this encounter
--- OUTSIDE RECORDS SUMMARY | 2024-11-19 08:35 | XMS_ITS | Encounter Summary ---
Author Organization [facility] Address [address] [place] [address] Care Team Providers Care Cloth Carrier Name Role Phone Eusebia Trimble MD Primary Care Provider Encounter Details Date Type Department Care Team (Latest Contact Info) Description 10/28/1994 Orders Only iLnda Ann MD [address] [place] [address] Social History Tobacco Use Types Packs/Day Years [...] on filedocumented in this encounter Care Teams Cloth Carrier Relationship Specialty Start [place] [address] [place], [place] [phone] PCP - General 12/07/05 documented as of this encounter
--- OUTSIDE RECORDS SUMMARY | 2024-11-19 08:35 | XMS_ITS | Clinical Summary ---
Author Organization [employer] [facility] Address [address] [place] [id number] Care Team Providers Care Paint Booth Operator Name Role Phone Robbie Last MD Primary Care Provider + [phone] Allergies Active Allergy Reactions Criticality Noted Date Comments Cats (Fur, Dander, Saliva) Itching 5 Medications albuterol HFA 90 mcg/actuation inhalerIndicatio ns:Upper respiratory virus Inhale 1-2 Puffs by mouth every 4 hours if needed. 1 Inhaler 8 Active Breast Pump - PurchaseIndicati ons:Lactating mother (HC) For home use. Reason for need: lactating mother. Length of need: 12 months 1 Device 9 Active sertraline (ZOLOFT) 50 mg tabletIndication s:Anxiety Take 1 tablet by mouth once daily. 90 tablet 3 0 Active Active Problems Problem Noted Date Diagnosed Date Breast feeding status of mother 09/26/2018 Adjustment disorder with depressed mood 11/30/19 13 Anxiety 11/29/2012 Migraine headache 09/19/2010 Overview (08/17/2018): Overview: Overview: (Problem list name updated by automated process. Provider to review and confirm.) Resolved Problems Problem Noted Date Diagnosed Date Resolved Date Vaginal delivery 08/17/2018 09/26/2018 Antepartum chorioamnionitis 08/17/2018 09/26/2018 Supervision of normal first , antepartum 12/31/2017 09/26/2018 Overview (09/26/2018): RESULT: AT 41w1d Estimated Date of Delivery: 08/09/18 OBHX: Occupation: Hairstylist FOB: Jay, Fire Management Officer: Blood type: B Rh Positive First trimester screen: declined US: FAS demonstrated normal anatomy, normal cervical length, posterior placenta with marginal edge extending completely over cervical os (see recs below> RESOLVED), and EFW in the 21%ile; Gender: GIRL! Gtt/Hgb: 90/11. GBS status: negative TDAP: 06/27/18 Flu: 08/01/2018 Nitrous oxide: consent signed 07/14/18 Pap: Done at IOB, NIL Breast pump rx: Prescription printed 07/14/2018 PP visit scheduled: yes Alerts: 1) Hx depression/anxeity > no current medication > becoming more bothersome as of 29w6d, referred to Yudelka Melgar, [facility], consider Zoloft if therapy not enough 2) Hx migraines > worse during this > consider consult to neurology if this persists - 03/07/2018: given a 24 hour supply (#12 tablets) of 5 mg oxycodone to treat active migraine 3) Nausea/vomiting > Rx Zofran 4) Placenta previa/marginal placenta (RESOLVED) > marginal edge completely covering cervical os on 20wk FAS > Follow up US on 05/16/2018 (28wks) now shows placental edge 2.8cm from internal os > ok for vaginal delivery 5) Leg cramps > magnesium, compression stockings 6) related carpal tunnel, right > wrist splints Management plans: - TESTING: - DELIVERY: Previa resolved, ok for vaginal delivery. Post dates IOL scheduled for 08/17/18 (41w1d). As of 08/15/2018 (40w6d), Saini score is 7. Plan to start with cervical ripening unless Saini score has improved to 8, in which case she could start with pitocin. Immunizations Immunization Administration Dates Next Due DTP-HIB 02/03/1995,02/05/1994,1993 ,1993 DTaP 10/02/1998, 5,02/05/1994,1993,05/1993 Hepatitis B (Peds) 05/07/1999,11/06/1998, 999 Inactivated Polio Vaccine 10/02/1998,02/05/1994, 1993,1993 Influenza, IIV4 04/03/2019 Influenza, IIV4 (=>6mos) MDV 08/01/2018 MMR 11/06/1998,02/03/1995 Oral Polio Vaccine 10/02/1998,02/05/1994, 994,1993 Tdap 06/27/2018,12/22/2005 Family History Medical History Relation Name Comments Good Health Brother 1 Good Health Brother 2 Good Health Brother 3 Heart attack Father Hypertension Father Cancer-prostate Maternal Grandfather Other Maternal Grandmother pacemak er Good Health Mother Diabetes type II Paternal Grandfather Heart attack Paternal Grandmother Hypertension Paternal Grandmother Good Health Sister 1 Fibroids Sister 2 Ovarian cysts Sister 2 Relation Name Status Comments Brother 1 Alive Brother 2 Alive Brother 3 Alive Father Alive Maternal Grandfather Maternal Grandmother Alive Mother Alive Paternal Grandfather Alive Paternal Grandmother Alive Sister 1 Alive Twin (identical ) Sister 2 Alive older sister Social History Tobacco Use Types Packs/Day Years Used Date Smoking Tobacco: Never Smokeless Tobacco: Never Tobacco Cessation:Counseling Given: No Alcohol Use Standard Drinks/Week Comments Not Currently 0 (1 standard drink = 0.6 oz pur e alcohol) PHQ-2 Answer Date Recorded PHQ-2 Score 2 07/27/2019 Comments No Sex and Gender Information Value Date Recorded Sex Assigned at Not on file Legal Sex Female 3:07 PM CDT Gender Identity Not on file Sexual Orientation Not on file Obstetrics History Para Term AB IAB SAB Ectopic Multiple Livin g Live Births 1 1 1 0 0 0 0 0 0 1 1 Date Outcome GA Total Labor Labor/2nd/3rd Weight Sex Type Anes PTL Leta A1 A5 Name Clin 2018 Term 41w 1d 0h 03m 3.51 kg (7 lb 11.8 oz) F Vag Epidur al N Livin g [address] Johnson Complications:Intraamniotic Infection Delivery Location:[facility] (UTD 2000 MB L&D TRIAGE) Last Filed Vital Signs Vital Sign Reading Time Taken Comments Blood Pressure 112/70 08/30/2019 11:29 AM CDT Pulse 92 08/30/2019 11:29 AM CDT Temperature 36.3 C (97.4 F) 08/18/2018 3:41 PM CDT Respiratory Rate 16 07/27/2019 1:37 PM [employer] Oxygen Saturation 98% 08/18/2018 3:41 PM CDT Inhaled Oxygen Concentration - - Weight 70.9 kg (156 lb 3.2 oz) 08/30/2019 11:29 AM CDT Height 154.9 cm (5' 1) 07/27/2019 1:37 PM [employer] [facility] Body Mass Index 29.51 07/27/2019 1:37 PM [employer] Plan of Treatment Health Maintenance Due Date Last Done Comments Hepatitis C screening for age 18-79 08/17/2011 BMI (ht and wt on same day) for age 18+ 07/26/2020 07/27/2019, 04/03/2019, 09/26/2018, Additional history exists Depression screening for age 12+ 07/26/2020 07/27/2019, 05/30/2018, 05/30/2018, Additional history exists Pap test for age 21-65 02/07/2021 02/07/2018 COVID-19 vaccine series ( season) 2024 Influenza Vaccine (Season Ended) 2025 04/03/2019, 08/01/2018 Tetanus booster 06/27/2028 06/27/2018, 12/22/2005 Hepatitis B series for 19+ Completed 05/07, 11/06/1998, 10/02/1998 HIV for age 15-65 Completed 12/31/2017 Tdap Completed 06/27/2018, 12/22/2005 Pneumococcal series for age 6-49 Aged Out No longer eligible based on patient's age to complete this topic Procedures Procedure Name Priority Date/Time Associated Diagnosis Comments HOOKING MACHINE OPERATOR THIN PREP PAP SCREEN IMAGED Routine 02/07/2018 2:45 PM CDT Screening for malignant neoplasm of cervix ANTI HIV 1/2 Routine 12/31/2017 10:04 AM CDT Encounter for supervision of normal first in first trimester (HC) from Last 3 Months or Most Recently Relevant to Health Maintenance Results * HOOKING MACHINE OPERATOR THIN PREP PAP SCREEN IMAGED (02/07/2018 2:45 PM CDT) Case Report Gynecologic Cytology Report Case: [id number] Authorizing Provider: Maggie Rodríguez MD Collected: 02/07/2018 1445 Ordering Location: [facility] Received: 02/07/2018 1506 Clinic First Screen: Penny [place] Specimen: HOOKING MACHINE OPERATOR ThinPrep Vial Screening, Cervical 02/18/2018 11:00 AM CDT [facility] INTERPRETATION/ RESULT NEGATIVE FOR INTRAEPITHELIAL LESION OR MALIGNANCY (NIL) (none) 02/18/2018 11:00 AM CDT [facility] [employer] ENTRAL LABORATORY at 1100 CDT SPECIMEN ADEQUACY Satisfactory for evaluation No endocervical component seen in a patient Excessive cytolysis/autolys is 02/18/2018 11:00 AM CDT [facility] [employer] ENTRAL LABORATORY HPV REQUEST HPV if ASCUS 02/18/2018 11:00 AM CDT [facility] Date of LMP 11/02/17 02/18/2018 11:00 AM CDT [facility] [employer] ENTRAL LABORATORY Last Pap Date unknown 02/18/2018 11:00 AM CDT [facility] [employer] [facility]ORY[facility] ENTRAL LABORATORY Last Pap Result NIL 8 11:00 AM CDT [facility] Abnormal Pap or Ayer Bx in last 5 years No 02/18/2018 11:00 AM CDT [facility] [employer] ENTRAL LABORATORY Menstrual Status 02/18/2018 11:00 AM CDT [facility] [employer] ENTRAL LABORATORY Ayer Bx Done Today No 02/18/2018 11:00 AM CDT [facility] [employer] ENTRAL LABORATORY Additional Information None given 02/18/2018 11:00 AM CDT [facility] [employer] ENTRAL LABORATORY Automated Review Successful 02/18/2018 11:00 AM CDT [facility] [employer] ENTRAL LABORATORY Comment:Specimen processed s uccessfully by automated numerical control machine operator device, ThinPrep Imaging System, [employer] Note The pap test is a screening technique, not a diagnostic procedure. It is used primarily to screen for squamous cancers and precursor lesions. Published studies have shown that it is subject to both false negative and false positive results. The pap test should not be used as the sole means to diagnose or exclude pre-malignant and malignant lesions. Cytology is screened and interpreted at [facility], Central Laboratory - [address], [place] [address] and [facility] - [address]; [place] [address] and [facility] - [address]; [place] [address] and [facility] [address]; [place] [address] 02/18/2018 11:00 AM CDT [facility] ENTRAL LABORATORY Other (Cervical) Non-Blood / Unknown 02/07/2018 2:45 PM CDT 02/07/2018 3:06 PM CDT Maggie Rodríguez MD PATHOLOGY/CYTOLOGY Mariella vaughn Result [facility] [address] [place] [address], * ANTI HIV 1/2 (12/31/2017 10:04 AM CDT) HIV-1/HIV-2 ANTIBODY Non-Reacti ve Non-Reacti ve 12/31/2017 2:36 PM CDT [facility] Comment:HIV-1 p24 and HIV-1/ HIV-2 Ab not detected. Blood BLOOD SPECIMEN / Unknown Venipuncture / Unknown 12/31/2017 10:04 AM CDT 12/31/2017 10:05 AM CDT Maggie Rodríguez MD SEND OUTS Final R esult [facility] [address] from Last 3 Months or Most Recently Relevant to Health Maintenance Advance Directives * Full Code (Latest Code Status on File) Date Activated Date Inactivated Comments 2018 8:47 AM 08/18/2018 10:52 PM Care Teams Paint Booth Operator Relationship Specialty Start Date End Date Robbie Last MD PCP - General Family Practice 12/31/17
--- OUTSIDE RECORDS SUMMARY | 2024-11-19 08:35 | XMS_ITS | Encounter Summary ---
Author [facility] Address [address] [place] [address] Care Team Providers Care Operating Room Technician Name Role Phone Eusebia Trimble MD Primary Care Provider [phone] Encounter Details Date Type Department Care Team (Latest Contact Info) Description 05/20/1997 Orders Only [facility] [address], [place] [address] Social History Tobacco Use Types Packs/Day Years [...] on filedocumented in this encounter Care Teams Operating Room Technician Relationship Specialty Start [place] [address] [place] [address] PCP - General 12/07/05 documented as of this encounter
--- OUTSIDE RECORDS SUMMARY | 2024-11-19 08:35 | XMS_ITS | Encounter Summary ---
Author Organization [facility] Address [address] [place] [address] Care Team Providers Care Audit Officer Name Role Phone Eusebia Trimble MD Primary Care Provider [phone] Encounter Details Date Type Department Care Team (Latest Contact Info) Description 04/09/1998 Orders Only Syd Borges MD [facility] [address] [place], [place] [id number] Social History Tobacco Use Types Packs/Day Years [...] on filedocumented in this encounter Care Teams Audit Officer Relationship Specialty Start [place] [address] [address] [place], [place] [id number] PCP - General 12/07/05 documented as of this encounter
[2024-11-19 08:59] VITALS: BP 105/74; PULSE 71; RESP 16; TEMP 36.7; O2SAT 98
--- NOTE | 2024-11-19 09:07 | CRLHL7_ITS ---
For Patients: As a result of the Century Cures Act, medical imaging exams and procedure reports are released immediately into your electronic medical record. You may view this report before your referring provider. If you have questions, please contact your health care provider. Indication: Trauma, fall. Technique: Left ankle 3 views. Comparison: None. Findings/Impression: Acute trimalleolar fracture. Lateral malleolus fracture is mildly displaced. Ankle mortise is congruent. Generalized swelling. Dictated by Wander Meredith MD @ 11/19/2024 10:58:52 AM (Electronically Signed)
--- NOTE | 2024-11-19 10:37 | ED_ITS ---
HPI - General Adult General Chief complaint: Extremity Pain/Injury, Lower Stated complaint: left ankle injury Time Seen by Provider: 11/19/24 10:22 History of Present Illness HPI narrative: Patient is a 29-year-old woman who twisted her left ankle today. She was walking down some stairs in the ankle got twisted underneath her. She has severe pain over the superior aspect of the left ankle as well as by malleolar pain. Patient has no skin breakdown. Swelling is confined to the ankle with no significant foot or knee issues. Minimal bruising and ecchymosis. Significant swelling noted as above. Related Data Home Medications ?Medication ?Instructions ?Recorded ?Confirmed No Known Home Medications 04/09/2210/23 Allergies Allergy/AdvReac Type Severity Reaction Status Date / Time No Known Drug Allergies Allergy Verified 11/19/24 09:03 Review of Systems Status of ROS: Reports: 10 or more systems reviewed and unremarkable except as noted in History and [facility] Medical History Migraine aura without headache ?G43.109 - Migraine with aura, not intractable, without status migrainosus (ICD-10) Surgical History S/P laparoscopy (03/2022) ?Z98.890 - Other specified postprocedural states (ICD-10) [place] teeth extracted ?K08.409 - Partial loss of teeth, unspecified cause, unspecified class (ICD- 10) Family History Father Alcohol dependence High blood pressure High cholesterol Skin cancer Pancreatitis Paternal Grandmother Alcohol dependence High blood pressure High cholesterol Stroke Paternal Grandfather Diabetes High blood pressure High cholesterol Maternal Grandfather Prostate cancer Other Myocardial infarction Exam Narrative: Exam Narrative: EXAM GENERAL: Patient appears comfortable and well. EYES: No scleral icterus. LYMPH: No supraclavicular or cervical lymphadenopathy. SKIN: Visible skin seen during exam normal or with benign process only. EXT: Significant swelling of the left ankle primarily anteriorly with minimal bruising. HEART: Regular rate and rhythm with no murmurs, rubs, or gallops. LUNGS: Clear to auscultation bilaterally with no crackles or wheezes. ABD: Soft, non tender, non distended. PSYCH: Good eye contact, speech is not pressured. Const: Vital Signs, click to edit/add: Vital Signs - 24 hr 11/19/24 08:59 Temperature 98.1 F Pulse Rate [Pulse Oximeter] 71 Respiratory Rate 16 Blood Pressure [Le ft Forearm] 105/74 Pulse Oximetry 98 Oxygen Delivery Me thod Room Air Course Course ED Course: Imaging pending. Vital Signs Vital signs: Initial Vital Signs Temperature 98.1 F 11/19/24 08:59 Temperature Source Temporal Artery Scan 11/19/24 08:59 Pulse Rate 71 11/19/24 08:59 Pulse Rhythm Regular 11/19/24 08:59 Respiratory Rate 16 11/19/24 08:59 Blood Pressure 105/74 11/19/24 08:59 Blood Pressure Mean 84 11/19/24 08:59 Blood Pressure Position Sitting 11/19/24 08:59 Pulse Oximetry 98 11/19/24 08:59 Oxygen Delivery Method Room Air 11/19/24 08:59 Vital Signs Temperature 98.1 F 11/19/24 08:59 Pulse Rate 71 11/19/24 08:59 Respiratory Rate 16 11/19/24 08:59 Blood Pressure 105/74 11/19/24 08:59 Pulse Oximetry 98 11/19/24 08:59 Oxygen Delivery Method Room Air 11/19/24 08:59 Temperature 98.1 F 11/19/24 08:59 Pulse Rate 71 11/19/24 08:59 Respiratory Rate 16 11/19/24 08:59 Blood Pressure 105/74 11/19/24 08:59 Pulse Oximetry 98 11/19/24 08:59 Oxygen Delivery Method Room Air 11/19/24 08:59 Medical Decision Making MDM Narrative Medical decision making narrative: Patient presents after twisting her left ankle. X-ray shows by malleolar ankle fracture. Case reviewed with Orthopedics. Recommended splinting with cam walker with nonweightbearing Tylenol Motrin ice and elevation. Patient declines pain medication. Orthopedic follow-up this coming week. Discharge Plan Discharge Clinical Impression: Ankle fracture Patient Disposition: Home, Self-Care Condition: Stable Instructions: Ankle Fracture (ED) Additional Instructions: Wear splint Nonweightbearing Crutches as needed Pain control as discussed Ice Follow-up with orthopedics this week. Activity Level: No Restrictions Discharge Diet: Regular Prescriptions: No Action No Known Home Medications Follow Up/Referrals: Provider,Not a Local [Primary Care Provider, Family Practice] Stand Alone Forms: [employer] Info Instructions
== END 2024-11-19 11:10 | disposition home or self-care (01) ==
PROVIDERS: Emergency Provider Internal Medicine
DX: S82.852A Displaced trimalleolar fracture of left lower leg, initial encounter for closed fracture (principal); W10.9XXA Fall (on) (from) unspecified stairs and steps, initial encounter
CPT/HCPCS: 73610; 99283